=== PATIENT | female | born 1940 | race Caucasian/White ===

== ENCOUNTER 2023-05-30 23:41 | Emergency (ER) | payer OTHER ==
[~2023-05-30] VITALS: Ht 160 cm; Wt 91.2 kg
[2023-05-30 23:45] VITALS: BP_SYST 171; PULSE 82; RESP 18; TEMP 98.1; O2SAT 98
[2023-05-30] MEDS: HYDROcodone/ACETAMIN 5-325 MG TAB (NORCO/ VICODIN) PO ONE (23:57)
[2023-05-31] MEDS: KETOROLAC TROMETHAMINE 30 MG VIAL IM ONE (01:22)
[2023-05-31] MEDS ORDERED: HYDR-3917 PO (01:54)
[2023-05-31 02:00] VITALS: BP_SYST 126; PULSE 78; RESP 20; TEMP 98; O2SAT 95
== END 2023-05-31 02:00 | disposition home or self-care (01) ==
LOC: SED 23:41
DX: S70.02XA Contusion of left hip, initial encounter (principal); Z79.899 Other long term (current) drug therapy; W18.2XXA Fall in (into) shower or empty bathtub, initial encounter; Y93.89 Activity, other specified; Y92.89 Other specified places as the place of occurrence of the external cause; Y99.8 Other external cause status
CPT/HCPCS: 99285; 72192; 96372; J1885